=== PATIENT | male | born 1980 | race African-American/Black ===

== ENCOUNTER 2018-10-07 06:18 | Emergency (ER) | payer OTHER ==
[~2018-10-07] VITALS: Ht 170.2 cm; Wt 72.6 kg
--- NOTE | 2018-10-07 06:18 | NUR ---
COURT GRIER, PREBOOK. TAKEN TO CHAIR D
--- NOTE | 2018-10-07 06:18 | NUR ---
Dr. Strong examining patient.
[2018-10-07 06:20] VITALS: BP 116/73
[2018-10-07 06:31] VITALS: BP 116/73
--- NOTE | 2018-10-07 06:31 | NUR ---
PATIWYATTPATIENT EXAMINED BY DR. COLMENARES. PATIENT MEDICALLY CLEARED AND RELEASED IN CUSTODY IN STABLE CONDITION. ORIGINAL PRE-BOOK FORM AND COPPY GIVEN TO OFFICER JACOB. DISCHARGE INSTRUCTIONS GIVEN TO OFFICER JACOB. DISCHARGE INTO CUSTODY OF LETY GRIER.
== END 2018-10-07 06:31 ==
LOC: MED 06:18
DX: Z02.89 Encounter for other administrative examinations (principal); M25.531 Pain in right wrist; M25.532 Pain in left wrist; Z88.8 Allergy status to other drugs, medicaments and biological substances
CPT/HCPCS: 99283

== ENCOUNTER 2023-02-24 17:01 | Emergency (ER) | payer OTHER ==
[~2023-02-24] VITALS: Ht 172.7 cm; Wt 65.8 kg
[2023-02-24 17:34] VITALS: BP 117/73; PULSE 74; RESP 15; TEMP 97.9; O2SAT 96
[2023-02-24 18:41] LABS: BASOPHILS % (AUTO) 0.5 % (0.0-2.0); EOSINOPHILS # (AUTO) 0.5 K/uL (0-0.4); EOSINOPHILS % (AUTO) 7.1 % (0.0-4.0); HEMATOCRIT 41.2 % (36-52); HEMOGLOBIN 13.7 g/dL (12.0-18.0); LYMPHOCYTES # (AUTO) 3.4 K/uL (2.0-11.5); MEAN CORPUSCULAR HEMOGLOBIN 28 pg (27-31); MEAN CORPUSCULAR HGB CONC 33 g/dL (33-37); MEAN CORPUSCULAR VOLUME 83.7 fL (80-94); MONOCYTES # (AUTO) 0.5 K/uL (0.8-1.0); MONOCYTES % (AUTO) 8.2 % (1.7-9.3); NEUTROPHILS # (AUTO) 1.9 K/uL (1.8-7.7); NEUTROPHILS % (AUTO) 30.2 % (42.2-75.2); PLATELET COUNT (AUTO) 265 K/uL (140-450); RED BLOOD CELL COUNT(AUTO) 4.93 MIL/uL (4.20-6.10); RED CELL DISTRIBUTION WIDTH 12.5 % (11.6-13.7); WHITE BLOOD COUNT (AUTO) 6.4 K/uL (4.8-10.8)
[2023-02-24 18:48] LABS: APPEARANCE,URINE CLEAR (CLEAR); BILIRUBIN,URINE 1+ (NEGATIVE); BLOOD, URINE NEGATIVE (NEGATIVE); LEUKOCYTE ESTERASE ,URINE NEGATIVE (NEGATIVE); NITRITE, URINE NEGATIVE (NEGATIVE); PROTEIN,URINE NEGATIVE (NEGATIVE); UGLUCOSE NEGATIVE (NEGATIVE)
[2023-02-24 18:50] LABS: COLOR,URINE AMBER (YELLOW)
[2023-02-24 18:56] LABS: ALANINE AMINOTRANSFERASE 18 U/L (12-78); ALBUMIN 3.7 g/dL (3.4-5.0); ALCOHOL, BLOOD < 3 mg/dL (<10); ALKALINE PHOSPHATASE 87 U/L (50-136); ANION GAP 10.1 (8-16); ASPARTATE AMINOTRANSFERASE 20 U/L (15-37); CALCIUM 8.7 mg/dL (8.5-10.1); CARBON DIOXIDE 29.7 mmol/L (21-32); CHLORIDE 101 mmol/L (98-107); GFR ARICAN-AMERICAN 105 mL/min (>90); GFR NON ARICAN-AMERICAN 87 mL/min (>90); GLUCOSE 73 mg/dL (74-106); POTASSIUM 3.8 mmol/L (3.5-5.1); SODIUM SERUM 137 mmol/L (136-145); TOTAL BILIRUBIN 0.4 mg/dL (0.0-1.0); UREA NITROGEN, BLOOD 8 mg/dL (7-18)
[2023-02-24 18:56] LABS: ICTOTEST NEGATIVE (NEGATIVE)
[2023-02-24 18:58] LABS: SALICYLATE < 2.8 mg/dL (2.8-20.0)
[2023-02-24 18:59] LABS: ACETAMINOPHEN < 0.5 ug/ml (10-30)
[2023-02-24 19:27] LABS: AMPHETAMINE, URINE NEGATIVE ng/ml (NEG <=1000); BARBITURATE, URINE NEGATIVE ng/ml (NEG <=200); BENZODIAZEPINE, URINE NEGATIVE ng/mL (NEG <=200); CANNABINOID, URINE POSITIVE ng/mL (NEG <=50); COCAINE, URINE NEGATIVE ng/mL (NEG <=300); OPIATE, URINE NEGATIVE ng/mL (NEG <=2000); PHENCYCLIDINE SCREEN,URINE NEGATIVE ng/mL (NEG <=25)
[2023-02-24 20:00] VITALS: O2SAT 96
[2023-02-25 03:19] VITALS: O2SAT 97
[2023-02-25 07:33] VITALS: O2SAT 97
[2023-02-25 07:36] VITALS: BP 111/61; PULSE 76; RESP 16; TEMP 97.8; O2SAT 97
== END 2023-02-25 09:20 | disposition home or self-care (01) ==
LOC: MED 17:01
DX: R45.851 Suicidal ideations (principal); Z20.822 Contact with and (suspected) exposure to COVID-19; J45.909 Unspecified asthma, uncomplicated; F17.200 Nicotine dependence, unspecified, uncomplicated; Z88.8 Allergy status to other drugs, medicaments and biological substances; Z79.899 Other long term (current) drug therapy
CPT/HCPCS: 36415; 80053; 80305; 81003; 85025; 87426; 87635; 99285; C9803; G0480; G0482